=== PATIENT | male | born 2000 | race Two or more races ===

== ENCOUNTER 2023-12-11 05:05 | Emergency (ER) | payer OTHER | END 2023-12-11 05:55 | disposition home or self-care (01) | LOC: VM.ED 05:05 | DX: R06.00 Dyspnea, unspecified (principal) | CPT/HCPCS: 99283 ==

== ENCOUNTER 2024-05-11 20:13 | Emergency (ER) | payer OTHER ==
[2024-05-11 21:43] LABS: BASOPHILS PERCENT AUTO 0.7 % (0.2-1.2); EOSINOPHILS ABSOLUTE AUTO 0.2 x10^3/uL (0.0-0.5); EOSINOPHILS PERCENT AUTO 2.8 % (0.0-4.0); HEMATOCRIT 42.5 % (40.0-52.0); HEMOGLOBIN 15.5 g/dL (14.0-18.0); IMMATURE GRAN ABSOLUTE AUTO 0.01 x10^3/uL (0.00-0.07); LYMPHOCYTES ABSOLUTE AUTO 2.3 x10^3/uL (1.0-4.8); LYMPHOCYTES PERCENT AUTO 39.3 % (25.0-50.0); MEAN CORPUSCULAR HEMOGLOBIN 32.6 pg (26.0-32.0); MEAN CORPUSCULAR HGB CONC 36.5 g/dL (32.0-36.0); MEAN CORPUSCULAR VOLUME 89.3 fL (78.0-93.0); MONOCYTES ABSOLUTE AUTO 0.5 x10^3/uL (0.0-0.8); MONOCYTES PERCENT AUTO 9.1 % (2.0-11.0); NEUTROPHILS ABSOLUTE AUTO 2.8 x10^3/uL (1.8-7.7); NEUTROPHILS PERCENT AUTO 47.9 % (50.0-80.0); PLATELET COUNT,PLT 235 x10^3/uL (130-400); RED BLOOD CELL COUNT 4.76 x10^6/uL (4.5-6.0); WHITE BLOOD CELL COUNT,WBC 5.8 x10^3/uL (4.0-10.0)
[2024-05-11 21:50] LABS: APPEARANCE,URINE CLEAR (CLEAR); BILIRUBIN,URINE NEGATIVE (NEGATIVE); COLOR,URINE YELLOW (YELLOW); GLUCOSE,URINE NEGATIVE (NEGATIVE); KETONES,URINE NEGATIVE (NEGATIVE); LEUKOCYTE ESTERASE,URINE NEGATIVE (NEGATIVE); NITRITE,URINE NEGATIVE (NEGATIVE); OCCULT BLOOD,URINE NEGATIVE (NEGATIVE); PROTEIN,URINE NEGATIVE (NEGATIVE); UROBILINOGEN,URINE 0.2 EU/dL (0.2)
[2024-05-11 21:59] LABS: A/G RATIO 1.03; ALANINE AMINOTRANSFERASE,ALT 28 U/L (16-63); ALBUMIN 4.1 g/dL (3.4-5.0); ALKALINE PHOSPHATASE 106 U/L (46-116); AMYLASE 43 U/L (25-115); ASPARTATE AMNIOTRANSFERASE,AST 23 U/L (15-37); BILIRUBIN TOTAL 0.5 mg/dL (0.2-1.0); BLOOD UREA NITROGEN,BUN 9 mg/dL (7-18); CALCIUM 9.5 mg/dL (8.5-10.1); CARBON DIOXIDE,CO2 30 mmol/L (21-32); CHLORIDE,CL 102 mmol/L (98-107); CREATININE 1.1 mg/dL (0.70-1.30); GLUCOSE RANDOM 90 mg/dL (70-99); LIPASE 22 U/L (19-71); POTASSIUM,K 3.6 mmol/L (3.5-5.1); PROTEIN TOTAL,TP 8.1 g/dL (6.4-8.2); SODIUM,NA 141 mmol/L (136-145)
[2024-05-11 22:00] LABS: ANION GAP 12.6 mmol/L (5-15); ESTIMATED GFR 96 mL/min (>=60)
[2024-05-11] MEDS: Take Home: Cyclobenzaprine 10 MG Tab, 4 Tab Pack PO ONE (23:00)
== END 2024-05-11 23:15 | disposition home or self-care (01) ==
LOC: VM.ED 20:13
DX: G89.29 Other chronic pain (principal); R10.31 Right lower quadrant pain
CPT/HCPCS: 36415; 80053; 81003; 82150; 83690; 85025; 99284; A9270

== ENCOUNTER 2024-10-03 17:13 | Emergency (ER) | payer OTHER ==
[2024-10-03] MEDS ORDERED: Sodium Chloride 0.9% 10 ML Syringe FLUSH PRN (17:33)
[2024-10-03 17:49] LABS: BASOPHILS PERCENT AUTO 0.5 % (0.2-1.2); EOSINOPHILS ABSOLUTE AUTO 0.2 x10^3/uL (0.0-0.5); EOSINOPHILS PERCENT AUTO 2.7 % (0.0-4.0); HEMATOCRIT 42.7 % (40.0-52.0); HEMOGLOBIN 15.4 g/dL (14.0-18.0); IMMATURE GRAN ABSOLUTE AUTO 0.03 x10^3/uL (0.00-0.07); LYMPHOCYTES ABSOLUTE AUTO 2.2 x10^3/uL (1.0-4.8); LYMPHOCYTES PERCENT AUTO 29.4 % (25.0-50.0); MEAN CORPUSCULAR HEMOGLOBIN 31.6 pg (26.0-32.0); MEAN CORPUSCULAR HGB CONC 36.1 g/dL (32.0-36.0); MEAN CORPUSCULAR VOLUME 87.5 fL (78.0-93.0); MONOCYTES ABSOLUTE AUTO 0.6 x10^3/uL (0.0-0.8); MONOCYTES PERCENT AUTO 7.4 % (2.0-11.0); NEUTROPHILS ABSOLUTE AUTO 4.5 x10^3/uL (1.8-7.7); NEUTROPHILS PERCENT AUTO 59.6 % (50.0-80.0); PLATELET COUNT,PLT 242 x10^3/uL (130-400); RED BLOOD CELL COUNT 4.88 x10^6/uL (4.5-6.0); WHITE BLOOD CELL COUNT,WBC 7.5 x10^3/uL (4.0-10.0)
[2024-10-03 18:12] LABS: LACTIC ACID 1.7 mmol/L (0.4-2.0)
[2024-10-03 18:18] LABS: A/G RATIO 1.18; ALANINE AMINOTRANSFERASE,ALT 32 U/L (16-63); ALBUMIN 4.5 g/dL (3.4-5.0); ALKALINE PHOSPHATASE 134 U/L (46-116); ASPARTATE AMNIOTRANSFERASE,AST 20 U/L (15-37); BILIRUBIN TOTAL 0.2 mg/dL (0.2-1.0); BLOOD UREA NITROGEN,BUN 8 mg/dL (7-18); CARBON DIOXIDE,CO2 30 mmol/L (21-32); CHLORIDE,CL 100 mmol/L (98-107); CREATININE 1.3 mg/dL (0.70-1.30); EST CRCL DRUG DOSING (CG) 80.51 mL/min; GLUCOSE RANDOM 105 mg/dL (70-99); LACTATE DEHYDROGENASE,LDH 173 U/L (85-227); POTASSIUM,K 3.3 mmol/L (3.5-5.1); PROTEIN TOTAL,TP 8.3 g/dL (6.4-8.2); SODIUM,NA 141 mmol/L (136-145)
[2024-10-03 18:25] LABS: ANION GAP 14.3 mmol/L (5-15); C-REACTIVE PROTEIN < 0.50 mg/dL (<=0.50); ESTIMATED GFR 78 mL/min (>=60)
[2024-10-03] MEDS: Take Home: Albuterol 18 GM Inhaler, 1 Inhaler Pack INH PRN (18:42)
== END 2024-10-03 18:46 | disposition home or self-care (01) ==
LOC: VM.ED 17:13
DX: B34.9 Viral infection, unspecified (principal)
CPT/HCPCS: 36415; 71045; 80053; 83605; 83615; 85025; 86140; 86790; 87428-QW; 87651; 93005; 93010; 99284; 99285; A9270-GY